=== PATIENT | female | born 1935 | race Hispanic/Latino ===

== ENCOUNTER → 2018-06-15 | Outpatient (CLI) | payer OTHER, MEDICARE | END | disposition home or self-care (01) | LOC: RAH 07:21 | PROVIDERS: ATTEND Family Medicine | DX: I99.8 Other disorder of circulatory system (principal); R41.89 Other symptoms and signs involving cognitive functions and awareness | CPT/HCPCS: 70551 ==

== ENCOUNTER → 2020-04-11 | Outpatient (CLI) | payer OTHER, MEDICARE | LOC: SHCH 09:58 | PROVIDERS: ATTEND Internal Medicine Cardiovascular Disease | DX: I51.7 Cardiomegaly (principal); I48.0 Paroxysmal atrial fibrillation; R01.1 Cardiac murmur, unspecified | CPT/HCPCS: 93306 ==

== ENCOUNTER → 2020-05-20 | Outpatient (CLI) | payer OTHER, MEDICARE ==
[~2020-05-20] MED LIST: REGADENOSON 0.4 MG/5 ML PF SYG IVP SCH
== END | disposition home or self-care (01) ==
LOC: SHCH 08:35
PROVIDERS: ATTEND Internal Medicine Cardiovascular Disease
DX: I42.9 Cardiomyopathy, unspecified (principal)
CPT/HCPCS: 78452; 93017; 96374; A9500 ×2; J2785

== ENCOUNTER → 2020-09-05 | Outpatient (CLI) | payer OTHER, MEDICARE | END | disposition home or self-care (01) | LOC: RAH 10:54 | PROVIDERS: ATTEND Family Medicine | DX: M77.31 Calcaneal spur, right foot (principal); M25.571 Pain in right ankle and joints of right foot; M47.814 Spondylosis without myelopathy or radiculopathy, thoracic region; R06.2 Wheezing | CPT/HCPCS: 71046; 73610 ==

== ENCOUNTER → 2021-05-27 | Outpatient (CLI) | payer MEDICARE | END | disposition home or self-care (01) | LOC: SHCH 09:43 | PROVIDERS: ATTEND Internal Medicine Cardiovascular Disease | DX: I87.2 Venous insufficiency (chronic) (peripheral) (principal) | CPT/HCPCS: 93970 ==

== ENCOUNTER → 2022-07-29 | Outpatient (CLI) | payer MEDICARE | END | disposition home or self-care (01) | LOC: RAH 12:59 | PROVIDERS: ATTEND Family Medicine | DX: M19.032 Primary osteoarthritis, left wrist (principal); M25.532 Pain in left wrist | CPT/HCPCS: 73110 ==

== ENCOUNTER 2023-01-28 22:44 | Emergency (ER) | payer OTHER, MEDICARE ==
[2023-01-29 01:54] VITALS: BP 142/58
== END 2023-01-29 02:04 | disposition home or self-care (01) ==
LOC: EDH 22:44
DX: S40.021A Contusion of right upper arm, initial encounter (principal); S70.01XA Contusion of right hip, initial encounter; W18.39XA Other fall on same level, initial encounter; Y93.89 Activity, other specified; Y92.89 Other specified places as the place of occurrence of the external cause; Y99.8 Other external cause status; I10 Essential (primary) hypertension; E11.9 Type 2 diabetes mellitus without complications; E78.00 Pure hypercholesterolemia, unspecified; F03.90 Unspecified dementia, unspecified severity, without behavioral disturbance, psychotic disturbance, mood disturbance, and anxiety; J45.909 Unspecified asthma, uncomplicated; M19.90 Unspecified osteoarthritis, unspecified site
CPT/HCPCS: 70450; 71045; 72170; 73060; 73080; 73552; 73564

== ENCOUNTER 2023-05-11 19:59 | Observation (INO) | payer OTHER, MEDICARE ==
[~2023-05-11] VITALS: Ht 152.4 cm; Wt 70.7 kg
[2023-05-11 20:54] LABS: BASOPHILS # (AUTO) 0.02 K/uL (0.00-0.20); BASOPHILS % (AUTO) 0.4 % (0.0-5.0); EOSINOPHILS # (AUTO) 0.12 K/uL (0.00-0.70); EOSINOPHILS % (AUTO) 2.1 % (0.0-8.0); HEMATOCRIT 41.2 % (36-48); IMMATURE GRANULOCYTE ABSOLUTE 0.02 K/uL (0-1); LYMPHOCYTES # (AUTO) 1.6 K/uL (1.0-4.8); LYMPHOCYTES % (AUTO) 27.9 % (21.0-51.0); MEAN CORPUSCULAR HEMOGLOBIN 29.4 pg (27.0-33.0); MEAN CORPUSCULAR VOLUME 89.2 fL (79-99); MONOCYTES # (AUTO) 0.5 K/uL (0.1-1.0); MONOCYTES % (AUTO) 9.1 % (3.0-13.0); NEUTROPHILS # (AUTO) 3.4 K/uL (1.8-7.7); NEUTROPHILS % (AUTO) 60.1 % (40.0-77.0); PLATELET COUNT (AUTO) 170 K/uL (130-400); RED BLOOD CELL COUNT(AUTO) 4.62 MIL/uL (4.00-5.50); RED CELL DISTRIBUTION WIDTH 14.2 % (11.0-15.5); WHITE BLOOD COUNT (AUTO) 5.6 K/uL (4.8-10.8)
[2023-05-11] MEDS ORDERED: LABETALOL 20MG VIAL IV ONE (21:00)
[2023-05-11 21:07] LABS: APPEARANCE,URINE CLEAR (CLEAR); BILIRUBIN,URINE NEGATIVE (NEGATIVE); COLOR,URINE YELLOW (YELLOW); GLUCOSE, URINE (UA) NEGATIVE (NEGATIVE); KETONES,URINE NEGATIVE (NEGATIVE); LEUKOCYTE ESTERASE ,URINE SMALL Leu/uL (NEGATIVE); NITRATE,URINE NEGATIVE (NEGATIVE); OCCULT BLOOD,URINE NEGATIVE (NEGATIVE); PROTEIN,URINE NEGATIVE (NEGATIVE); UROBILINOGEN,URINE 0.2 mg/dL (0.2-1.0)
[2023-05-11 21:15] LABS: ADD UA MICROSCOPIC YES
[2023-05-11 21:17] LABS: BACTERIA,URINE RARE /HPF (None Seen); MUCUS,URINE RARE LPF (None Seen); RBC,URINE 0-1 /HPF (0-1); SQUAMOUS EPITHELIAL CELL,UR RARE /HPF (0-2)
[2023-05-11 21:19] LABS: MAGNESIUM 2.3 mg/dL (1.80-2.40); THYROID STIMULATING HORMONE 1.91 uIU/mL (0.36-3.74)
[2023-05-11 22:18] LABS: ALBUMIN 3.3 g/dL (3.5-5.0); BILIRUBIN,TOTAL 0.3 mg/dL (0.2-1.0); POTASSIUM 3.7 mmol/L (3.5-5.1); TOTAL PROTEIN, SERUM 6.7 g/dL (6.0-8.3)
[2023-05-11] MEDS ORDERED: ONDANSETRON 4MG INJ IV PRN (23:00)
[2023-05-11] MEDS ORDERED: ARTIFICAL TEARS SOL 15 ML OP PRN (23:00)
[2023-05-11] MEDS ORDERED: GUAIFENESIN SUGAR-FREE 100 MG/5 ML UDCUP PO PRN (23:00)
[2023-05-11] MEDS ORDERED: DOCUSATE SODIUM 100 MG CAP PO PRN (23:00)
[2023-05-11] MEDS ORDERED: DiphenhydrAMINE HCL 50 MG/ML VIAL IV PRN (23:00)
[2023-05-11] MEDS ORDERED: LACTULOSE 20 GM/30 ML UDCUP PO PRN (23:00)
[2023-05-11] MEDS ORDERED: GUAIFENESIN-DM 200/20 MG 10 ML PO PRN (23:00)
[2023-05-11] MEDS ORDERED: POLYETHYLENE GLYCOL 3350 17 GM POWD.PACK PO PRN (23:00)
[2023-05-11] MEDS ORDERED: ZOLPIDEM TARTRATE 5 MG TAB PO PRN (23:00)
[2023-05-11] MEDS ORDERED: LOPERAMIDE HCL 2 MG CAP PO PRN (23:00)
[2023-05-11] MEDS ORDERED: ACETAMINOPHEN 325 MG TAB PO PRN ×2 (23:00)
[2023-05-11] MEDS ORDERED: NITROGLYCERIN 0.4 MG SL TAB SL PRN (23:00)
[2023-05-11] MEDS ORDERED: ALPRAZOLAM 0.5 MG TABLET PO PRN (23:00)
[2023-05-11] MEDS ORDERED: MAG/ALUM/SIMETH 30 ML UDCUP PO PRN (23:00)
[2023-05-11] MEDS ORDERED: ALBUTEROL 0.083% 2.5 MG/3 ML INH IH PRN (23:00)
[2023-05-11] MEDS: 0.9%NACL 1000ML 1,000 ML IV SCH (23:21)
[2023-05-11] MEDS ORDERED: METOPROLOL TARTRATE 1 MG/ML 5ML VIAL IV PRN (23:30)
[2023-05-11 23:33] LABS: INR 0.93 (0.85-1.15); PROTHROMBIN TIME 10.6 SEC (9.6-11.6)
[2023-05-12] VITALS (7 sets, daily range): BP systolic 126–146; BP diastolic 70–101; PULSE 80–116; RESP 20; O2SAT 98
[2023-05-12] MEDS: CEFTRIAXONE 2GM VIAL IVPB SCH ×2 (00:27→23:11)
[2023-05-12] MEDS: HEPARIN 5,000 UNIT VIAL SQ SCH ×4 (00:27→23:16)
[2023-05-12 06:41] LABS: BASOPHILS # (AUTO) 0.02 K/uL (0.00-0.20); BASOPHILS % (AUTO) 0.3 % (0.0-5.0); EOSINOPHILS # (AUTO) 0.18 K/uL (0.00-0.70); HEMATOCRIT 40.9 % (36-48); IMMATURE GRANULOCYTE ABSOLUTE 0.01 K/uL (0-1); LYMPHOCYTES # (AUTO) 1.8 K/uL (1.0-4.8); LYMPHOCYTES % (AUTO) 29.6 % (21.0-51.0); MEAN CORPUSCULAR HEMOGLOBIN 28.6 pg (27.0-33.0); MEAN CORPUSCULAR HGB CONC 32.8 g/dL (32.0-36.0); MEAN CORPUSCULAR VOLUME 87.2 fL (79-99); MONOCYTES # (AUTO) 0.5 K/uL (0.1-1.0); MONOCYTES % (AUTO) 9.1 % (3.0-13.0); NEUTROPHILS # (AUTO) 3.4 K/uL (1.8-7.7); NEUTROPHILS % (AUTO) 57.8 % (40.0-77.0); PLATELET COUNT (AUTO) 164 K/uL (130-400); RED BLOOD CELL COUNT(AUTO) 4.69 MIL/uL (4.00-5.50); RED CELL DISTRIBUTION WIDTH 14.2 % (11.0-15.5)
[2023-05-12 06:49] LABS: HEMOGLOBIN A1C 5.7 % (4.0-6.0)
[2023-05-12 07:02] LABS: ALBUMIN 3.4 g/dL (3.5-5.0); BILIRUBIN,TOTAL 0.4 mg/dL (0.2-1.0); POTASSIUM 3.4 mmol/L (3.5-5.1); THYROID STIMULATING HORMONE 3.12 uIU/mL (0.36-3.74); TOTAL PROTEIN, SERUM 6.8 g/dL (6.0-8.3)
[2023-05-12] MEDS: INSULIN HUMULIN R 100 UNIT/ML 3ML SQ SCH ×4 (07:30→20:10)
[2023-05-12] MEDS: FAMOTIDINE 20MG VIAL IV SCH ×2 (08:31→22:38)
[2023-05-12] MEDS ORDERED: AEC81 PO (09:04)
[2023-05-12] MEDS ORDERED: LISI2.5T13 PO (09:04)
[2023-05-12] MEDS ORDERED: MEMA5TAB42 PO (09:04)
[2023-05-12] MEDS ORDERED: LETR2.5T7 PO (09:04)
[2023-05-12] MEDS ORDERED: POTASSIUM CHLORIDE 10% ELIXIR 20 MEQ/15 ML UDCUP PO PRN (10:00)
[2023-05-12] MEDS ORDERED: POTASSIUM CHLORIDE 20MEQ/100ML 100 ML IV PRN (10:00)
[2023-05-12] MEDS ORDERED: HYDRALAZINE 20MG/ML VIAL IV PRN (10:00)
[2023-05-12] MEDS ORDERED: MAGNESIUM 2GM PREMIX 50ML 50 ML IV PRN (10:00)
[2023-05-12] MEDS: LISINOPRIL 5 MG TABLET PO SCH ×2 (12:26→22:38)
[2023-05-12] MEDS ORDERED: METOPROLOL TARTRATE 25 MG TAB PO ONE (12:30)
[2023-05-12] MEDS: 0.9%NACL 1000ML 1,000 ML IV SCH ×2 (12:58→17:15)
[2023-05-12] MEDS ORDERED: POTASSIUM CHLORIDE 10% ELIXIR 20 MEQ/15 ML UDCUP PO ONE (18:00)
[2023-05-12] MEDS ORDERED: FUROSEMIDE 20MG VIAL IV ONE (18:00)
[2023-05-12] MEDS: METOPROLOL TARTRATE 25 MG TAB PO SCH (22:38)
[2023-05-13] VITALS (17 sets, daily range): BP systolic 108–158; BP diastolic 57–96; PULSE 47–140; RESP 16–24; O2SAT 98
[2023-05-13] MEDS: HALOPERIDOL INJ 5 MG/ML VIAL IV SCH ×2 (01:36→02:17)
[2023-05-13] MEDS ORDERED: HALOPERIDOL INJ 5 MG/ML VIAL IM SCH (02:30)
[2023-05-13 03:48] LABS: CREATININE 1.3 mg/dL (0.5-1.5); POTASSIUM 3.5 mmol/L (3.5-5.1)
[2023-05-13] MEDS ORDERED: DILTIAZEM 125MG+100 ML NS 125 ML IV ONE (05:10)
[2023-05-13] MEDS ORDERED: DILTIAZEM 50MG VIAL IV ONE (05:11)
[2023-05-13] MEDS ORDERED: DILTIAZEM 50MG VIAL IV SCH (05:30)
[2023-05-13] MEDS ORDERED: DILTIAZEM 125 MG/25 ML INJ 125 MG in 0.9%NACL 100ML 100 ML IV SCH (05:30)
[2023-05-13] MEDS ORDERED: LORAZEPAM 2 MG/ML 1 ML VIAL IVP ONE (05:30)
[2023-05-13 05:34] LABS: BASOPHILS # (AUTO) 0.02 K/uL (0.00-0.20); BASOPHILS % (AUTO) 0.2 % (0.0-5.0); EOSINOPHILS # (AUTO) 0.03 K/uL (0.00-0.70); EOSINOPHILS % (AUTO) 0.3 % (0.0-8.0); HEMATOCRIT 42.9 % (36-48); IMMATURE GRANULOCYTE ABSOLUTE 0.02 K/uL (0-1); LYMPHOCYTES # (AUTO) 1.4 K/uL (1.0-4.8); LYMPHOCYTES % (AUTO) 15.8 % (21.0-51.0); MEAN CORPUSCULAR HGB CONC 32.6 g/dL (32.0-36.0); MONOCYTES # (AUTO) 0.6 K/uL (0.1-1.0); MONOCYTES % (AUTO) 6.4 % (3.0-13.0); NEUTROPHILS # (AUTO) 6.9 K/uL (1.8-7.7); NEUTROPHILS % (AUTO) 77.1 % (40.0-77.0); PLATELET COUNT (AUTO) 167 K/uL (130-400); RED BLOOD CELL COUNT(AUTO) 4.82 MIL/uL (4.00-5.50); RED CELL DISTRIBUTION WIDTH 14.3 % (11.0-15.5); WHITE BLOOD COUNT (AUTO) 8.9 K/uL (4.8-10.8)
[2023-05-13 05:40] LABS: MAGNESIUM 1.9 mg/dL (1.80-2.40); PHOSPHORUS 2.7 mg/dL (2.5-4.9)
[2023-05-13] MEDS ORDERED: POTASSIUM CHLORIDE 10% ELIXIR 20 MEQ/15 ML UDCUP PO ONE (06:00)
[2023-05-13] MEDS ORDERED: FUROSEMIDE 20MG VIAL IV ONE (06:00)
[2023-05-13] MEDS ORDERED: IPRATROPIUM/ALBUTEROL SULFATE 3 ML SOLUTION IH STA (06:10)
[2023-05-13] MEDS: INSULIN HUMULIN R 100 UNIT/ML 3ML SQ SCH ×4 (07:30→21:00)
[2023-05-13 07:35] LABS: ABG BASE EXCESS 2.5 mmol/L (-2.0-3.0); ABG HCO3 27.3 mmol/L (21.0-28.0); ABG OXYGEN SATURATION 98.6 % (95.0-99.0); ABG PCO2 43 mmHg (32-45); PO2, ARTERIAL BG 126.1 mmHg (83.0-108.0); VENT MODE, BG NC 2L (ROOM AIR)
[2023-05-13] MEDS: HEPARIN 5,000 UNIT VIAL SQ SCH ×2 (07:51→17:12)
[2023-05-13] MEDS: METOPROLOL TARTRATE 25 MG TAB PO SCH ×2 (08:50→21:47)
[2023-05-13] MEDS: ASPIRIN 81 MG EC TAB PO SCH (08:50)
[2023-05-13] MEDS: FAMOTIDINE 20MG VIAL IV SCH ×2 (08:50→20:43)
[2023-05-13] MEDS: MEMANTINE HCL 5 MG TABLET PO SCH (08:50)
[2023-05-13] MEDS: IPRATROPIUM/ALBUTEROL SULFATE 3 ML SOLUTION IH SCH (18:57)
[2023-05-14] VITALS (8 sets, daily range): BP systolic 130–156; BP diastolic 76–89; PULSE 75–98; RESP 18–20; O2SAT 96–99
[2023-05-14] MEDS: CEFTRIAXONE 2GM VIAL IVPB SCH (00:28)
[2023-05-14] MEDS: HEPARIN 5,000 UNIT VIAL SQ SCH ×3 (00:39→15:30)
[2023-05-14] MEDS: IPRATROPIUM/ALBUTEROL SULFATE 3 ML SOLUTION IH SCH ×2 (04:53→06:34)
[2023-05-14 05:22] LABS: BASOPHILS # (AUTO) 0.02 K/uL (0.00-0.20); BASOPHILS % (AUTO) 0.3 % (0.0-5.0); EOSINOPHILS # (AUTO) 0.07 K/uL (0.00-0.70); EOSINOPHILS % (AUTO) 1.2 % (0.0-8.0); HEMATOCRIT 43.9 % (36-48); IMMATURE GRANULOCYTE ABSOLUTE 0.03 K/uL (0-1); LYMPHOCYTES # (AUTO) 1.5 K/uL (1.0-4.8); LYMPHOCYTES % (AUTO) 24.7 % (21.0-51.0); MEAN CORPUSCULAR HEMOGLOBIN 28.9 pg (27.0-33.0); MEAN CORPUSCULAR HGB CONC 32.3 g/dL (32.0-36.0); MEAN CORPUSCULAR VOLUME 89.4 fL (79-99); MONOCYTES # (AUTO) 0.5 K/uL (0.1-1.0); MONOCYTES % (AUTO) 8.4 % (3.0-13.0); NEUTROPHILS # (AUTO) 3.8 K/uL (1.8-7.7); NEUTROPHILS % (AUTO) 64.9 % (40.0-77.0); PLATELET COUNT (AUTO) 156 K/uL (130-400); RED BLOOD CELL COUNT(AUTO) 4.91 MIL/uL (4.00-5.50); RED CELL DISTRIBUTION WIDTH 14.5 % (11.0-15.5); WHITE BLOOD COUNT (AUTO) 5.9 K/uL (4.8-10.8)
[2023-05-14 05:32] LABS: CREATININE 1.2 mg/dL (0.5-1.5); MAGNESIUM 2.4 mg/dL (1.80-2.40); POTASSIUM 3.4 mmol/L (3.5-5.1)
[2023-05-14] MEDS: INSULIN HUMULIN R 100 UNIT/ML 3ML SQ SCH ×3 (05:41→16:26)
[2023-05-14] MEDS: KCL 20 MEQ ERTAB PO PRN ×2 (06:28→09:59)
[2023-05-14] MEDS ORDERED: IPRATROPIUM/ALBUTEROL SULFATE 3 ML SOLUTION IH PRN (09:30)
[2023-05-14] MEDS: FAMOTIDINE 20MG VIAL IV SCH (09:59)
[2023-05-14] MEDS: ASPIRIN 81 MG EC TAB PO SCH (09:59)
[2023-05-14] MEDS: METOPROLOL TARTRATE 25 MG TAB PO SCH (10:00)
[2023-05-14] MEDS: MEMANTINE HCL 5 MG TABLET PO SCH (10:00)
[2023-05-14] MEDS ORDERED: POLY17PO4 PO (15:37)
[2023-05-14] MEDS ORDERED: AMOX1TAB16 PO (15:37)
[2023-05-14] MEDS ORDERED: METO25 PO (15:37)
== END 2023-05-14 17:10 | disposition home or self-care (01) ==
LOC: EDH 19:59 → EDHIP 22:56 → 2AH 05-12 12:02
PROVIDERS: ADMIT Internal Medicine Critical Care Medicine; ATTEND Internal Medicine Critical Care Medicine
DX: N30.00 Acute cystitis without hematuria (principal); I16.1 Hypertensive emergency; G93.40 Encephalopathy, unspecified; I48.0 Paroxysmal atrial fibrillation; F02.80 Dementia in other diseases classified elsewhere, unspecified severity, without behavioral disturbance, psychotic disturbance, mood disturbance, and anxiety; J45.909 Unspecified asthma, uncomplicated; E78.00 Pure hypercholesterolemia, unspecified; E11.9 Type 2 diabetes mellitus without complications; G30.9 Alzheimer's disease, unspecified; I11.0 Hypertensive heart disease with heart failure; I50.43 Acute on chronic combined systolic (congestive) and diastolic (congestive) heart failure; I42.0 Dilated cardiomyopathy; R41.82 Altered mental status, unspecified; Z79.811 Long term (current) use of aromatase inhibitors; Z79.82 Long term (current) use of aspirin; Z79.899 Other long term (current) drug therapy; Z85.3 Personal history of malignant neoplasm of breast; Z90.12 Acquired absence of left breast and nipple; Z98.890 Other specified postprocedural states
CPT/HCPCS: 96361 ×2; 96375 ×3; 99285; 84443 ×2; 83735 ×4; 84484 ×2; 80053 ×2; 85025 ×4; 85610; 85730; 87040 ×2; 87088; 81001; 36415 ×4; 71045 ×2; 70450; 93005 ×2; 96376 ×3; 96372 ×3; 96365; 96366 ×2; 83036; 82550; 83880 ×2; 82140; 82948 ×10; 83605; 93306; 93356; 94664 ×2; 84145; 94640 ×4; 96367; 96368; 84100; 80048 ×2; 82803; 85378; 36600; 97161; 97116; G0378 ×62; J3490 ×9; J0696 ×3; J0360; J1940 ×2; J1644 ×7; J3475; J1200; J1630 ×2; J2060

== ENCOUNTER → 2023-08-18 | Outpatient (CLI) | payer OTHER, MEDICARE ==
[~2023-08-18] MED LIST changes: +AEC81 PO; +AMOX1TAB16 PO; +LETR2.5T7 PO; +LISI2.5T13 PO; +MEMA5TAB42 PO; +METO25 PO; +POLY17PO4 PO; -REGADENOSON 0.4 MG/5 ML PF SYG IVP SCH
== END | disposition home or self-care (01) ==
LOC: SHCH 10:56
PROVIDERS: ATTEND Internal Medicine Cardiovascular Disease
DX: I70.203 Unspecified atherosclerosis of native arteries of extremities, bilateral legs (principal)
CPT/HCPCS: 93925

== ENCOUNTER → 2024-08-11 | Outpatient (CLI) | payer OTHER, MEDICARE ==
[~2024-08-11] MED LIST changes: +MEMA5TAB16 PO; -MEMA5TAB42 PO
--- NOTE | 2024-08-14 08:12 | HMCSR ---
APPROVED REPORT Laterality: Bilateral VELOCITY AND DOPPLER WAVEFORM ANALYSIS ANIMAL RIDES MANAGER (R) 83.4cm/sec, Biphasic, ANIMAL RIDES MANAGER (L) 72.7cm/sec, Biphasic, Prof Fem Art. (R) 37.0cm/sec, Biphasic, Prof Fem Art. (L) 41.3cm/sec, Biphasic, Fem Art Prox. (R) 70.6cm/sec, Biphasic, Fem Art Prox. (L) 64.6cm/sec, Biphasic, Fem Art Mid. (R) 86.8cm/sec, Biphasic, Fem Art Mid. (L) 41.3cm/sec, Biphasic, Fem Art Dist (R) 57.9cm/sec, Biphasic, Fem Art Dist. (L) 35.0cm/sec, Biphasic, Pop Art(AK) (R) 193.8cm/sec, Biphasic, Mild < 50% Pop Art (AK) (L) 50.2cm/sec, Biphasic, Pop Art (Fossa)(R) 119.6cm/sec, Biphasic, Pop Art (Fossa) (L) 47.6cm/sec, Biphasic, Pop Art(BK) (R) 143.6cm/sec, Biphasic, Pop Art (BK) (L) 50.2cm/sec, Biphasic, ENGINE REPAIRER SERVICE Prox. (R) 28.3cm/sec, Biphasic, ENGINE REPAIRER SERVICE Prox. (L) cm/sec, Occluded, ENGINE REPAIRER SERVICE Mid. (R) cm/sec, Occluded, ENGINE REPAIRER SERVICE Mid. (L) cm/sec, Occluded, ENGINE REPAIRER SERVICE Dist. (R) cm/sec, Occluded, ENGINE REPAIRER SERVICE Dist. (L) cm/sec, Occluded, Per Art Dist. (R) 104.4cm/sec, Biphasic, Per Art Dist. (L) 51.1cm/sec, Biphasic, MARCO Prox. (R) 154.9cm/sec, Biphasic, Mild < 50% MARCO Prox. (L) 273.3cm/sec, Biphasic, Moderate > 50% MARCO Mid. (R) 79.3cm/sec, Biphasic MARCO Mid. (L) 76.3cm/sec, Biphasic, MARCO Dist. (R) 50.6cm/sec, Biphasic, MARCO Dist. (L) 50.2cm/sec, Biphasic, Technologist Impression Diffuse atherosclerosis throughout the bilateral lower extremities. There is evidence of mild stenosis in the right popliteal artery and right anterior tibial artery. The right posterior tibial artery appears occluded. There is evidence of moderate stenosis in the left anterior tibial artery. The left posterior tibial artery appears occluded. 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
--- NOTE | 2024-08-14 08:12 | HMCSR ---
APPROVED REPORT Bilateral Lower Extremity Venous Study for DVT., Venous Competence.Study performed with patient in up right position or in reverse Trendelenburg. Vein Imaging CFV (R): Normal flow, augmentation and compression. No evidence of DVT, Diameter 9.9 mm SFJ (R): Normal flow, augmentation and compression. No evidence of DVT. FEM (R): Normal flow, augmentation and compression. No evidence of DVT. POP (R): Normal flow, augmentation and compression. No evidence of DVT, 350 ms of DVR. DFV (R): Normal flow, augmentation and compression. No evidence of DVT. PTV (R): Normal flow, augmentation and compression. No evidence of DVT. Peroneals (R): Normal flow, augmentation and compression. No evidence of DVT. GAS (R): Normal flow, augmentation and compression. No evidence of DVT. CFV (L): Normal flow, augmen tation and compression. No evidence of DVT, Diameter 11.2 mm, 667 ms of DVR. SFJ (L): Normal flow, augmentation and compression. No evidence of DVT. FEM (L): Normal flow, augmentation and compression. No evidence of DV, 650 ms of DVR. POP (L): Normal flow, augmentation and compression. No evidence of DVT. DFV (L): Normal flow, augmentation and compression. No evidence of DVT. PTV (L): Normal flow, augmentation and compression. No evidence of DVT. Peroneals (L): Normal flow, augmentation and compression. No evidence of DVT. GAS (L): Normal flow, augmentation and compression. No evidence of DVT. Technologist Impression The deep veins of the bilateral lower extremities appear patent and compressible without evidence of thrombus. Deep venous reflux demonstrated in the right popliteal, left common femoral and left femoral vein. There is evidence of significant superficial venous insufficiency in the bilateral greater saphenous veins. RGSV Junction 2.7 mm 0 ms Mid thigh 2.9 mm 0 ms Knee 2.2 mm 1022 ms Mid- calf 1.2 mm 1611 ms (Becomes very small below the knee) RSSV Prox 3.5 mm 0 ms Mid-Not visualized LGSV Junction 3.3 mm 572 ms Mid thigh 3.0 mm 0 ms Knee 2.5 mm 0 ms Mid-calf 1.2 mm 0 ms (Becomes very small below the knee LSSV Prox 2.4 mm 0 ms Mid 2.4 mm 0 ms Conclusion Deep venous reflux demonstrated in the right popliteal, left common femoral and left femoral vein. There is evidence of significant superficial venous insufficiency in the bilateral greater saphenous veins. Consider formal venography with IVC if iliac vein compression is suspected Conclusion Deep venous reflux demonstrated in the right popliteal, left common femoral and left femoral vein. There is evidence of significant superficial venous insufficiency in the bilateral greater saphenous veins. Consider formal venography with IVC if iliac vein compression is suspected
== END | disposition home or self-care (01) ==
LOC: SHCH 10:05
PROVIDERS: ATTEND Internal Medicine Cardiovascular Disease
DX: I87.2 Venous insufficiency (chronic) (peripheral) (principal); I87.1 Compression of vein; I70.203 Unspecified atherosclerosis of native arteries of extremities, bilateral legs
CPT/HCPCS: 93925; 93970